=== PATIENT | male | born 1985 | race Caucasian/White ===

== ENCOUNTER 2023-10-14 11:31 | Outpatient (OUT) | payer OTHER, SELFPAY ==
[2023-10-14 11:51] LABS: Basophils Absolute Auto 0.1 10^3/uL (0.0-0.1); Basophils Percent Auto 0.7 % (0.2-2.0); Eosinophils Absolute Auto 0.3 10^3/uL (0.0-0.7); Eosinophils Percent Auto 3.1 % (0.9-7.0); Hematocrit 40.5 % (42.0-54.0); Hemoglobin 13.6 g/dL (14.0-18.0); Immature Granulocytes Abs Auto 0.07 10^3/uL (0.00-0.03); Immature Granulocytes Pct Auto 0.7 % (0.0-0.5); Lymphocytes Absolute Auto 2.6 10^3/uL (1.2-3.8); Lymphocytes Percent Auto 26.3 % (20.5-60.0); Mean Corpuscular HGB Conc 33.6 g/dL (29.9-35.2); Mean Corpuscular Hemoglobin 29.4 pg (25.9-34.0); Mean Corpuscular Volume 87.5 fL (80.0-94.0); Mean Platelet Volume 9.3 fL (9.5-13.5); Monocytes Absolute Auto 0.8 10^3/uL (0.3-0.8); Monocytes Percent Auto 7.6 % (1.7-12.0); Neutrophils Absolute Auto 6.1 10^3/uL (1.4-6.5); Neutrophils Percent Auto 61.6 % (43.0-75.0); Platelet Count 248 10^3/uL (150-450); Red Blood Count 4.63 10^6/uL (4.70-6.10); Red Cell Distribution Width 14.2 % (11.0-15.0)
[2023-10-14 11:55] LABS: Estimated Average Glucose 105 mg/dL; Glycohemoglobin A1C 5.3 % (4.5-6.2)
[2023-10-14 12:34] LABS: Alanine Aminotransferase 57 U/L (16-63); Albumin Globulin Ratio 0.9; Albumin Level 3.5 g/dL (3.4-5.0); Alkaline Phosphatase 59 U/L (46-116); Anion Gap 11.5; Aspartate Amino Transferase 18 U/L (15-37); BUN Creatinine Ratio 15.4; Bilirubin Direct 0.1 mg/dL (0.0-0.2); Bilirubin Total 0.7 mg/dL (0.2-1.0); Carbon Dioxide 29.7 mmol/L (21.0-32.0); Chloride 104 mmol/L (98-107); Cholesterol 166 mg/dL (<=200); Estimated GFR (African America >60 (>=60); Estimated GFR (Non-African Ame >60 (>=60); Glucose 90 mg/dL (74-106); HDL Cholesterol 42 mg/dL (40-60); LDL Cholesterol Calculated 110.8 mg/dL; Potassium 4.2 mmol/L (3.5-5.1); Sodium 141 mmol/L (136-145); Total Protein 7.5 g/dL (6.4-8.2); Triglycerides 66 mg/dL (<=150); VLDL CHOLESTEROL 13.2 mg/dL
== END 2023-10-14 11:32 | disposition home or self-care (01) ==
LOC: LAB 11:31
PROVIDERS: PCP Family Medicine; Visit Provider Family Medicine
DX: Z00.00 Encounter for general adult medical examination without abnormal findings (principal); E55.9 Vitamin D deficiency, unspecified
CPT/HCPCS: 36415; 80048; 80061; 80076; 82306; 83036; 84443; 85025

== ENCOUNTER 2024-10-16 10:23 | Outpatient (OUT) | payer OTHER, SELFPAY ==
[2024-10-16 10:39] LABS: Basophils Absolute Auto 0.1 10^3/uL (0.0-0.1); Basophils Percent Auto 0.6 % (0.2-2.0); Eosinophils Absolute Auto 0.3 10^3/uL (0.0-0.7); Eosinophils Percent Auto 2.7 % (0.9-7.0); Hematocrit 41.8 % (42.0-54.0); Hemoglobin 14.3 g/dL (14.0-18.0); Immature Granulocytes Abs Auto 0.07 10^3/uL (0.00-0.03); Immature Granulocytes Pct Auto 0.7 % (0.0-0.5); Lymphocytes Absolute Auto 2.7 10^3/uL (1.2-3.8); Lymphocytes Percent Auto 25.3 % (20.5-60.0); Mean Corpuscular HGB Conc 34.2 g/dL (29.9-35.2); Mean Corpuscular Hemoglobin 29.6 pg (25.9-34.0); Mean Corpuscular Volume 86.5 fL (80.0-94.0); Monocytes Absolute Auto 0.8 10^3/uL (0.3-0.8); Monocytes Percent Auto 7.4 % (1.7-12.0); Neutrophils Absolute Auto 6.7 10^3/uL (1.4-6.5); Neutrophils Percent Auto 63.3 % (43.0-75.0); Platelet Count 249 10^3/uL (150-450); Red Blood Count 4.83 10^6/uL (4.70-6.10); Red Cell Distribution Width 14.2 % (11.0-15.0); White Blood Count 10.6 10^3/uL (4.0-11.0)
--- OUTSIDE RECORDS SUMMARY | 2024-10-16 10:45 | XMS_ITS | CCD ---
Author Organization [facility] Care Team Providers Care Certified Energy Manager Name Role Phone Rola Caba Unavailable CATALINA, DR ARMEN García Attending Unavailable NADERER, DR ARMEN García Admitting Unavailable NADERER, DR ARMEN García Primary Care Unavailable NADERER, DR ARMEN García Consulting Unavailable NADERER, DR ARMEN García Admitting Unavailable NADERER, DR ARMEN García Primary Care Unavailable NADERER, DR ARMEN García Consulting Unavailable NADERER, DR ARMEN García Attending Unavailable NADERER, DR ARMEN García Admitting Unavailable NADERER, DR ARMEN García Primary Care Unavailable NADERER, DR ARMEN García Consulting Unavailable NADERER, DR ARMEN García Attending Unavailable NADERER, DR ARMEN García Admitting Unavailable NADERER, DR ARMEN García Primary Care Unavailable NADERER, DR ARMEN García Consulting Unavailable NADERER, DR ARMEN García Attending Unavailable Unavailable Primary Care Provider Armen Jose MD Primary Care Provider CATALINA, ARMEN Attending Unavailable HARMEET HUGO Attending Unavailable NADERER, ARMEN Attending Unavailable Allergies Allergy Classification Reported Allergen(s) Allergy Type Date of Onset Reaction(s) Facility (1 source) Penicillin G Drug Allergy Unknown [facility] Other (1 source) Sulfamethoxazole / Trimethoprim Drug Allergy Unknown [facility] Other (3 sources) Penicillins Drug Allergy 4 Rash [facility] (3 sources) Sulfamethoxazole / Trimethoprim Drug Allergy 4 Unknown [facility] Medications Current Medications Medication Drug Class(es) Dates Sig (Normalized) Sig (Original) Bacitracin 500 UNIT/GM (1 source) Bacitracin 500 UNIT/GM 1 application right lower eye lid 3 times a day for 7 days Active cholecalciferol 0.05 mg oral tablet (1 source) Vitamin D Start: 10-14-2023 take 1 tablet by mouth once in the morning cholecalciferol (Vitamin D-3) 50 MCG (1999 UT) tablet Indications: Vitamin D deficiency Take 1 tablet (50 mcg) by mouth in the morning. 90 tablet 3 10/14/2023 Active hydroCHLOROthiazide 25 mg / losartan potassium 100 mg oral tablet (3 sources) Thiazide Diuretic, Angiotensin 2 Receptor Ej Start: 02-10-2024 take 1 tablet by mouth once daily losartan-hydroCHLOR Othiazide (Hyzaar) 100-25 MG tablet Indications: Essential hypertension, benign (CMS/HCC) Take 1 tablet by mouth Daily 90 tablet 3 02/10/2024 Active Losartan Potassium-HCTZ (1 source) Losartan Potassium-HCTZ Active Nirmatrelvir&Ritonavir 300/100 (Paxlovid, 300/100,) 20 x 150 MG & 10 x 100MG tablet therapy pack (1 source) Start: 11-23-2023 Nirmatrelvir&Ritona vir 300/100 (Paxlovid, 300/100,) 20 x 150 MG & 10 x 100MG tablet therapy pack Indications: COVID Take 1 Dose by mouth See administration instructions 1 each 0 11/23/2023 Active Completed/Discontinued Medications Medication Drug Class(es) Dates Sig (Normalized) Sig (Original) Paxlovid, 300/100, 20 x 150 MG & 10 x 100MG tablet therapy pack (1 source) Start: 02-28-2023 End: 11-23-2023 Paxlovid, 300/100, 20 x 150 MG & 10 x 100MG tablet therapy pack Take 1 Dose by mouth See administration instructions 0 02/28/2023 11/23/2023 Discontinued (Reorder) Problems Active Problems Problem Classification Problem Date Documented Da te Episodic/Chronic Acute bronchitis (1 source) Acute bronchitis; Translations: [Acute bronchitis] Episodic Essential hypertension (5 sources) Benign essential hypertension; Translations: [Essential (primary) hypertension] Onset: 12-20-2023 12-20-2023 Chronic Nutritional deficiencies (4 sources) Vitamin D deficiency, unspecified; Translations: [Vitamin D deficiency] Onset: 08-15-2022 12-20-2023 Chronic Other nutritional; endocrine; and metabolic disorders (1 source) Morbid obesity; Translations: [Morbid (severe) obesity due to excess calories] Onset: 02-10-2024 02-10-2024 Chronic Other nutritional; endocrine; and metabolic disorders (4 sources) Severe obesity; Translations: [Class 3 severe obesity due to excess calories with serious comorbidity and body mass index (BMI) of 45.0 to 49.9 in adult (CMS/[facility])] Onset: 02-10-2024 09-12-2024 Chronic Unclassified (3 sources) CONTACT W/AND (SUSP) EXPOS COVID-19; Translations: [CONTACT W/AND (SUSP) EXPOS COVID-19] Onset: 11-12-2021 Viral infection (1 source) Disease caused by 2019-nCoV; Translations: [COVID-19] 11-23-2023 Episodic Viral infection (1 source) COVID-19; Translations: [COVID-19] Onset: 11-25-2021 Past or Other Problems Problem Classification Problem Date Documented Da te Episodic/Chronic Diabetes mellitus without complication (3 sources) Prediabetes; Translations: [Prediabetes] Onset: 12-20-2023 12-20-2023 Episodic Inflammation; infection of eye (except that caused by tuberculosis or sexually transmitteddisease) (1 source) Hordeolum externum right upper eyelid Onset: 03-28-2022 Resolved: 03-28-2022 Episodic Other non-traumatic joint disorders (3 sources) Pain in left knee; Translations: [Pain in joint, lower leg] Onset: 12-20-2023 12-20-2023 Episodic Other upper respiratory disease (3 sources) Bleeding from nose; Translations: [Epistaxis] Onset: 02-10-2024 Resolved: 09-12-2024 02-10-2024 Episodic Unclassified (1 source) CONTACT W/AND (SUSP) EXPOS COVID-19; Translations: [CONTACT W/AND (SUSP) EXPOS COVID-19] Onset: 11-23-2021 Results Test Name Value Interpretation Reference Range Facility CBC AUTO DIFFon 08-09-2022 BASO # 0.1 103/ul Normal 0.0-0.1 [facility] Comment on above: Performed By: #### C BC #### [facility] [address] [place] [address] Dr. Kavitha Yoo Basophils/100 WBC (Bld) 0.8 % Normal 0.2-2.0 [facility] Comment on above: Performed By: #### C BC #### [facility] [address] [place] [address] Dr. Kavitha Yoo EO # 0.2 103/ul Normal 0.0-0.7 [facility] Comment on above: Performed By: #### C BC #### [facility] [address] [place] [address] Dr. Kavitha Yoo Eosinophils/100 WBC (Bld) 1.8 % Normal 0.9-7.0 [facility] Comment on above: Performed By: #### C BC #### [facility] [address] [place] [address] Dr. Kavitha Yoo Erythrocyte distribution width (RBC) [Ratio] 14.2 % Normal 11.0-15.0 [facility] Comment on above: Performed By: #### C BC #### [facility] [address] [place] [address] Dr. Kavitha Yoo Hematocrit (Bld) [Volume fraction] 42.6 % Normal 42.0-54.0 [facility] Comment on above: Performed By: #### C BC #### [facility] [address] [place] [address] Dr. Kavitha Yoo Hemoglobin (Bld) [Mass/Vol] 14.0 g/dL Normal 14.0-18.0 [facility] Comment on above: Performed By: #### C BC #### [facility] [address] [place] [address] Dr. Kavitha Yoo IG # 0.06 10e3/ul Critically high 0.00-0.03 [facility] Comment on above: Performed By: #### C BC #### [facility] [address] [place] [address] Dr. Kavitha Yoo IG % 0.6 % Critically high 0.0-0.5 [facility] Comment on above: Performed By: #### C BC #### [facility] [address] [place] [address] Dr. Kavitha Yoo LYMPH # 2.7 103/ul Normal 1.2-3.8 [facility] Comment on above: Performed By: #### C BC #### [facility] [address] [place] [address] Dr. Kavitha Yoo Lymphocytes/100 WBC (Bld) 26.6 % Normal 20.5-60.0 [facility] Comment on above: Performed By: #### C BC #### [facility] [address] [place] [address] Dr. Kavitha Yoo MANUAL DIFF REQ NO Normal [facility] Comment on above: Performed By: #### C BC #### [facility] [address] [place] [address] Dr. Kavitha Yoo MCH (RBC) [Entitic mass] 28.9 pg Normal 25.9-34.0 [facility] Comment on above: Performed By: #### C BC #### [facility] [address] [place] [address] Dr. Kavitha Yoo MCHC (RBC) [Mass/Vol] 32.9 g/dL Normal 29.9-35.2 [facility] Comment on above: Performed By: #### C BC #### [facility] [address] [place] [address] Dr. Kavitha Yoo MCV (RBC) [Entitic vol] 88.0 fL Normal 80.0-94.0 [facility] Comment on above: Performed By: #### C BC #### [facility] [address] [place] [address] Dr. Kavitha Yoo MONO # 0.8 103/ul Normal 0.3-0.8 [facility] Comment on above: Performed By: #### C BC #### [facility] [address] [place] [address] Dr. Kavitha Yoo Monocytes/100 WBC (Bld) 7.7 % Normal 1.7-12.0 [facility] Comment on above: Performed By: #### C BC #### [facility] [address] [place] [address] Dr. Kavitha Yoo NEUT # 6.3 103/ul Normal 1.4-6.5 [facility] Comment on above: Performed By: #### C BC #### [facility] [address] [place] [address] Dr. Kavitha Yoo Neutrophils/100 WBC (Bld) 62.5 % Normal 43.0-75.0 [facility] Comment on above: Performed By: #### C BC #### [facility] [address] [place] [address] Dr. Kavitha Yoo Platelet mean volume (Bld) [Entitic vol] 9.6 fL Normal 9.5-13.5 [facility] Comment on above: Performed By: #### C BC #### [facility] [address] [place] [address] Dr. Kavitha Yoo PLT 286 103/ul Normal 150-450 [facility] Comment on above: Performed By: #### C BC #### [facility] [address] [place] [address] Dr. Kavitha Yoo RBC 4.84 106/ul Normal 4.70-6.10 [facility] Comment on above: Performed By: #### C BC #### [facility] [address] [place] [address] Dr. Kavitha Yoo WBC 10.0 103/ul Normal 4.0-11.0 [facility] Comment on above: Performed By: #### C BC #### [facility] [address] [place] [address] Dr. Kavitha Yoo GLYCOHEMOGLOBIN A1Con 2021 ADA RECOMMENDATION SEE BELOW Normal [facility] Comment on above: Result Comment: ADA RECOMMENDED LIMIT 4.0 - 6.0 ADA THERAPEUTIC TARGET < 7.0 ACTION SUGGESTED > 7.0 Performed By: #### A 1C #### [facility] [address] [place] [address] Dr. Kavitha Yoo Glucose [Mass/Vol] 94 mg/dL Normal [facility] Comment on above: Performed By: #### A 1C #### [facility] [address] [place] [address] Dr. Kavitha Yoo HbA1c (Bld) [Mass fraction] 4.9 % Normal 4.5-6.2 [facility] Comment on above: Performed By: #### A 1C #### [facility] [address] [address] [address] Kavitha Yoo LIPID PROFILEon 08-09-2022 CHOL-HDL RATIO NORM SEE BELOW Normal [facility] Comment on above: Result Comment: 3.3 - 4.4 LOW RISK 4.4 - 7.1 AVERAGE RISK 7.1 - 11.0 MODERATE RISK >11.0 HIGH RISK Performed By: #### T SH, LIVER, BMP, LIPID #### [facility] [address] [address] [address] Kavitha Yoo Cholesterol [Mass/Vol] 169 mg/dL Normal <=200 [facility] Comment on above: Performed By: #### T SH, LIVER, BMP, LIPID #### [facility] [address] [place] [address] Dr. Kavitha Yoo Cholesterol in HDL [Mass/Vol] 40 mg/dL Normal 40-60 [facility] Comment on above: Performed By: #### T SH, LIVER, BMP, LIPID #### [facility] [address] [address] [address] Kavitha Yoo Cholesterol in LDL [Mass/Vol] 120.0 mg/dL Normal [facility] Comment on above: Performed By: #### T SH, LIVER, BMP, LIPID #### [facility] [address] [address] [address] Kavitha Yoo Cholesterol.total/Ch olesterol in HDL [Mass ratio] 4.2 {ratio} Normal [facility] Comment on above: Performed By: #### T SH, LIVER, BMP, LIPID #### [facility] [address] [address] [address] Kavitha Yoo HDL NORMAL > or = 60 mg/dl - LOW CARDIOVASCULAR RISK <40 mg/dl - HIGH CARDIOVASCULAR RISK Normal [facility] Comment on above: Performed By: #### T SH, LIVER, BMP, LIPID #### [facility] [address] [place] [address] Dr. Kavitha Yoo LDL CALC NORMAL SEE BELOW Normal [facility] Comment on above: Result Comment: <100 mg/dl OPTIMAL 100 - 129 mg/dl NEAR OR ABOVE OPTIMAL 130 - 159 mg/dl BORDERLINE HIGH 160 - 189 mg/dl HIGH >190 mg/dl VERY HIGH Performed By: #### T SH, LIVER, BMP, LIPID #### [facility] [address] [address] [address] Kavitha Yoo Triglyceride [Mass/Vol] 45 mg/dL Normal <=150 [facility] Comment on above: Performed By: #### T SH, LIVER, BMP, LIPID #### [facility] [address] [address] [address] Kavitha Yoo VLDL CALC 9.0 mg/dL Normal [facility] Comment on above: Performed By: #### T SH, LIVER, BMP, LIPID #### [facility] [address] [address] [address] Kavitha Yoo LIVER PROFILEon 08-09-2022 Albumin [Mass/Vol] 4.1 g/dL Normal 3.4-5.0 [facility] Comment on above: Performed By: #### T SH, LIVER, BMP, LIPID #### [facility] [address] [address] [address] Kavitha Yoo Albumin/Globulin [Mass ratio] 1.0 {ratio} Normal [facility] Comment on above: Performed By: #### T SH, LIVER, BMP, LIPID #### [facility] [address] [address] [address] Kavitha Yoo ALP [Catalytic activity/Vol] 57 U/L Normal 46-116 [facility] Comment on above: Performed By: #### T SH, LIVER, BMP, LIPID #### [facility] [address] [address] [address] Kavitha Yoo ALT [Catalytic activity/Vol] 53 U/L Normal 16-63 [facility] Comment on above: Performed By: #### T SH, LIVER, BMP, LIPID #### [facility] [address] [address] [address] Kavitha Yoo AST [Catalytic activity/Vol] 22 U/L Normal 15-37 [facility] Comment on above: Performed By: #### T SH, LIVER, BMP, LIPID #### [facility] [address] [address] [address] Kavitha Yoo BILI, CONJUGATED 0.2 mg/dL Normal 0.0-0.2 [facility] Comment on above: Performed By: #### T SH, LIVER, BMP, LIPID #### [facility] [address] [place] [address] Dr. Kavitha Yoo Bilirubin [Mass/Vol] 0.8 mg/dL Normal 0.2-1.0 [facility] Comment on above: Performed By: #### T SH, LIVER, BMP, LIPID #### [facility] [address] [place] [address] Dr. Kavitha Yoo Globulin (S) [Mass/Vol] 4.0 g/dL Normal [facility] Comment on above: Performed By: #### T SH, LIVER, BMP, LIPID #### [facility] [address] [place] [address] Dr. Kavitha Yoo Protein [Mass/Vol] 8.1 g/dL Normal 6.4-8.2 [facility] Comment on above: Performed By: #### T SH, LIVER, BMP, LIPID #### [facility] [address] [place] [address] Dr. Kavitha Yoo PROF CHEM 8 (BAS METB)on Anion gap [Moles/Vol] 9.2 mmol/L Normal [facility] Comment on above: Performed By: #### T SH, LIVER, BMP, LIPID #### [facility] [address] [place] [address] Dr. Kavitha Yoo Calcium [Mass/Vol] 9.2 mg/dL Normal 8.5-10.1 [facility] Comment on above: Performed By: #### T SH, LIVER, BMP, LIPID #### [facility] [address] [place] [address] Dr. Kavitha Yoo Chloride [Moles/Vol] 101 mmol/L Normal 98-107 [facility] Comment on above: Performed By: #### T SH, LIVER, BMP, LIPID #### [facility] [address] [address] [address] Kavitha Yoo CO2 [Moles/Vol] 30.6 mmol/L Normal 21.0-32.0 [facility] Comment on above: Performed By: #### T SH, LIVER, BMP, LIPID #### [facility] [address] [address] [address] Kavitha Yoo Creatinine [Mass/Vol] 0.74 mg/dL Normal 0.70-1.30 [facility] Comment on above: Performed By: #### T SH, LIVER, BMP, LIPID #### [facility] [address] [address] [address] Kavitha Yoo EGFR-AF TONGAN >60 Normal >=60 [facility] Comment on above: Performed By: #### T SH, LIVER, BMP, LIPID #### [facility] [address] [address] [address] Kavitha Yoo EGFR-NON AF TONGAN >60 Normal >=60 [facility] Comment on above: Performed By: #### T SH, LIVER, BMP, LIPID #### [facility] [address] [address] [address] Kavitha Yoo Glucose [Mass/Vol] 80 mg/dL Normal 74-106 [facility] Comment on above: Performed By: #### T SH, LIVER, BMP, LIPID #### [facility] [address] [address] [address] Kavitha Yoo Potassium [Moles/Vol] 3.8 mmol/L Normal 3.5-5.1 [facility] Comment on above: Performed By: #### T SH, LIVER, BMP, LIPID #### [facility] [address] [address] [address] Kavitha Yoo Sodium [Moles/Vol] 137 mmol/L Normal 136-145 [facility] Comment on above: Performed By: #### T SH, LIVER, BMP, LIPID #### [facility] [address] [address] [address] Kavitha Yoo Urea nitrogen [Mass/Vol] 13.0 mg/dL Normal 7.0-18.0 [facility] Comment on above: Performed By: #### T SH, LIVER, BMP, LIPID #### [facility] [address] [place] [address] Dr. Kavitha Yoo Urea nitrogen/Creatinine [Mass ratio] 17.6 mg/mg Normal [facility] Comment on above: Performed By: #### T SH, LIVER, BMP, LIPID #### [facility] [address] [place] [address] Dr. Kavitha Yoo TSHon 08-09-2022 TSH 2.402 uIU/mL Normal 0.358-3.740 [facility] Comment on above: Performed By: #### T SH, LIVER, BMP, LIPID #### [facility] [address] [place] [address] Dr. Kavitha Yoo VITAMIN D 25 OHon 08-09-2022 VIT D 25-OH 19.9 ng/mL Normal [facility] Comment on above: Performed By: #### V ITAD #### [facility] [address] [place] [address] Dr. Kavitha Yoo VIT D RANGES SEE BELOW Normal [facility] Comment on above: Result Comment: <20 ng/mL Vit D deficient 20 - <30 ng/mL Vit D insufficient 30 - 100 ng/mL Vit D sufficient >100 ng/mL Potential Toxicity Performed By: #### V ITAD #### [facility] [address] [place] [address] Dr. Kavitha Yoo Covid-19 PCR (CVDTB)on SARS-CoV-2 (COVID-19) RNA LYNDSEY+probe Ql (Unsp spec) Detected Critically abnormal NOT DETECTED [facility] Comment on above: Result Comment: This test is not yet approved or cleared by the [place] FDA. When there are no FDA-approved or cleared tests available, and other criteria are met, FDA can make tests available under an emergency access mechanism called an Emergency Use Authorization (EUA). The EUA for this test is supported by the [place] of Health and Human Service's (HHS's) declaration that circumstances exist to justify the emergency use of in vitro diagnostics for the detection and/or diagnosis of the virus that causes COVID-19. This EUA will remain in effect (meaning this test can be used) for the duration of the COVID-19 declaration justifying emergency of IVDs, unless it is terminated or revoked by FDA (after which the test may no longer be used). Performed By: #### C VDTBH #### [facility] [address] [place] [address] Dr. Kavitha Yoo Covid-19 PCR ([facility])on 10-18 SARS-CoV-2 (COVID-19) RNA LYNDSEY+probe Ql (Unsp spec) Not detected Normal NOT DETECTED [facility] Comment on above: Result Comment: This test is not yet approved or cleared by the [place] FDA. When there are no FDA-approved or cleared tests available, and other criteria are met, FDA can make tests available under an emergency access mechanism called an Emergency Use Authorization (EUA). The EUA for this test is supported by the [place] of Health and Human Service's (HHS's) declaration that circumstances exist to justify the emergency use of in vitro diagnostics for the detection and/or diagnosis of the virus that causes COVID-19. This EUA will remain in effect (meaning this test can be used) for the duration of the COVID-19 declaration justifying emergency of IVDs, unless it is terminated or revoked by FDA (after which the test may no longer be used). When diagnostic testing is negative, the possibility of a false negative should be considered in the context of a patient's recent exposures and the presence of clinical signs and symptoms consistent with SARS-CoV-2. Performed By: #### T SH, LIVER, BMP, LIPID #### [facility] [address] [place] [address] [id number] [address] Kavitha Yoo CBC AUTO DIFFon 09-01-2021 BASO # 0.1 103/ul Normal 0.0-0.1 [facility] Comment on above: Performed By: #### C BC #### [facility] [address] [place], [place] [address] Dr. Kavitha Yoo Basophils/100 WBC (Bld) 0.9 % Normal 0.2-2.0 [facility] Comment on above: Performed By: #### C BC #### [facility] [address] [address] [address] Kavitha Yoo EO # 0.4 103/ul Normal 0.0-0.7 [facility] Comment on above: Performed By: #### C BC #### [facility] [address] [address] [address] Kavitha Yoo Eosinophils/100 WBC (Bld) 3.3 % Normal 0.9-7.0 [facility] Comment on above: Performed By: #### C BC #### [facility] [address] [place] [address] Dr. Kavitha Yoo Erythrocyte distribution width (RBC) [Ratio] 14.0 % Normal 11.0-15.0 [facility] Comment on above: Performed By: #### C BC #### [facility] [address] [place] [address] Dr. Kavitha Yoo Hematocrit (Bld) [Volume fraction] 41.9 % Critically low 42.0-54.0 [facility] Comment on above: Performed By: #### C BC #### [facility] [address] [place] [address] Dr. Kavitha Yoo Hemoglobin (Bld) [Mass/Vol] 14.1 g/dL Normal 14.0-18.0 [facility] Comment on above: Performed By: #### C BC #### [facility] [address] [place] [address] Dr. Kavitha Yoo IG # 0.08 10e3/ul Critically high 0.00-0.03 [facility] Comment on above: Performed By: #### C BC #### [facility] [address] [place] [address] Dr. Kavitha Yoo IG % 0.7 % Critically high 0.0-0.5 [facility] Comment on above: Performed By: #### C BC #### [facility] [address] [place] [address] Dr. Kavitha Yoo LYMPH # 3.2 103/ul Normal 1.2-3.8 [facility] Comment on above: Performed By: #### C BC #### [facility] [address] [place] [address] Dr. Kavitha Yoo Lymphocytes/100 WBC (Bld) 29.0 % Normal 20.5-60.0 [facility] Comment on above: Performed By: #### C BC #### [facility] [address] [place] [address] Dr. Kavitha Yoo MANUAL DIFF REQ NO Normal [facility] Comment on above: Performed By: #### C BC #### [facility] [address] [place] [address] Dr. Kavitha Yoo MCH (RBC) [Entitic mass] 29.6 pg Normal 25.9-34.0 [facility] Comment on above: Performed By: #### C BC #### [facility] [address] [place] [address] Dr. Kavitha Yoo MCHC (RBC) [Mass/Vol] 33.7 g/dL Normal 29.9-35.2 [facility] Comment on above: Performed By: #### C BC #### [facility] [address] [place] [address] Dr. Kavitha Yoo MCV (RBC) [Entitic vol] 87.8 fL Normal 80.0-94.0 [facility] Comment on above: Performed By: #### C BC #### [facility] [address] [place] [address] Dr. Kavitha Yoo MONO # 0.9 103/ul Critically high 0.3-0.8 [facility] Comment on above: Performed By: #### C BC #### [facility] [address] [place] [address] Dr. Kavitha Yoo Monocytes/100 WBC (Bld) 8.1 % Normal 1.7-12.0 [facility] [facility] Comment on above: Performed By: #### C BC #### [facility] [address] [place] [address] Dr. Kavitha Yoo NEUT # 6.3 103/ul Normal 1.4-6.5 [facility] Comment on above: Performed By: #### C BC #### [facility] [address] [address] [address] Kavitha Yoo Neutrophils/100 WBC (Bld) 58.0 % Normal 43.0-75.0 [facility] Comment on above: Performed By: #### C BC #### [facility] [address] [address] [address] Kavitha Yoo Platelet mean volume (Bld) [Entitic vol] 9.5 fL Normal 9.5-13.5 [facility] Comment on above: Performed By: #### C BC #### [facility] [address] [address] [address] Kavitha Yoo PLT 276 103/ul Normal 150-450 [facility] Comment on above: Performed By: #### C BC #### [facility] [address] [place] [address] Dr. Kavitha Yoo RBC 4.77 106/ul Normal 4.70-6.10 [facility] Comment on above: Performed By: #### C BC #### [facility] [address] [place] [address] Dr. Kavitha Yoo WBC 10.9 103/ul Normal 4.0-11.0 [facility] Comment on above: Performed By: #### C BC #### [facility] [address] [place] [address] Dr. Kavitha Yoo GLYCOHEMOGLOBIN A1Con 2020 ADA RECOMMENDATION ADA THERAPEUTIC TARGET 6.0 - 7.0 ACTION SUGGESTED > 7.0 Normal [facility] Comment on above: Performed By: #### A 1C #### [facility] [address] [place] [address] Dr. Kavitha Yoo Glucose [Mass/Vol] 105 mg/dL Normal [facility] Comment on above: Performed By: #### A 1C #### [facility] [address] [place] [address] Dr. Kavitha Yoo HbA1c (Bld) [Mass fraction] 5.3 % Normal <=6.0 [facility] Comment on above: Performed By: #### A 1C #### [facility] [address] [address] [address] Kavitha Yoo LIPID PROFILEon 09-01-2021 CHOL-HDL RATIO NORM SEE BELOW Normal [facility] Comment on above: Result Comment: 3.3 - 4.4 LOW RISK 4.4 - 7.1 AVERAGE RISK 7.1 - 11.0 MODERATE RISK >11.0 HIGH RISK Performed By: #### T SH, LIVER, BMP, LIPID #### [facility] [address] [address] [address] Kavitha Yoo Cholesterol [Mass/Vol] 178 mg/dL Normal <=200 [facility] Comment on above: Performed By: #### T SH, LIVER, BMP, LIPID #### [facility] [address] [place] [address] Dr. Kavitha Yoo Cholesterol in HDL [Mass/Vol] 38 mg/dL Normal [facility] Comment on above: Performed By: #### T SH, LIVER, BMP, LIPID #### [facility] [address] [place] [address] Dr. Kavitha Yoo Cholesterol in LDL [Mass/Vol] 123.4 mg/dL Normal [facility] Comment on above: Performed By: #### T SH, LIVER, BMP, LIPID #### [facility] [address] [place] [address] Dr. Kavitha Yoo Cholesterol.total/Ch olesterol in HDL [Mass ratio] 4.7 {ratio} Normal [facility] Comment on above: Performed By: #### T SH, LIVER, BMP, LIPID #### [facility] [address] [place] [address] Dr. Kavitha Yoo HDL NORMAL > or = 60 mg/dl - LOW CARDIOVASCULAR RISK <40 mg/dl - HIGH CARDIOVASCULAR RISK Normal [facility] Comment on above: Performed By: #### T SH, LIVER, BMP, LIPID #### [facility] [address] [place] [address] Dr. Kavitha Yoo LDL CALC NORMAL SEE BELOW Normal [facility] Comment on above: Result Comment: <100 mg/dl OPTIMAL 100 - 129 mg/dl NEAR OR ABOVE OPTIMAL 130 - 159 mg/dl BORDERLINE HIGH 160 - 189 mg/dl HIGH >190 mg/dl VERY HIGH Performed By: #### T SH, LIVER, BMP, LIPID #### [facility] [address] [address] [address] Kavitha Yoo Triglyceride [Mass/Vol] 83 mg/dL Normal <=150 [facility] Comment on above: Performed By: #### T SH, LIVER, BMP, LIPID #### [facility] [address] [address] [address] Kavitha Yoo VLDL CALC 16.6 mg/dL Normal [facility] Comment on above: Performed By: #### T SH, LIVER, BMP, LIPID #### [facility] [address] [address] [address] Kavitha Yoo LIVER PROFILEon 09-01-2021 Albumin [Mass/Vol] 3.9 g/dL Normal 3.5-5.0 [facility] Comment on above: Performed By: #### T SH, LIVER, BMP, LIPID #### [facility] [address] [address] [address] Kavitha Yoo Albumin/Globulin [Mass ratio] 1.0 {ratio} Normal [facility] Comment on above: Performed By: #### T SH, LIVER, BMP, LIPID #### [facility] [address] [place] [address] Dr. Kavitha Yoo ALP [Catalytic activity/Vol] 50 U/L Normal 38-126 [facility] Comment on above: Performed By: #### T SH, LIVER, BMP, LIPID #### [facility] [address] [address] [address] Kavitha Yoo ALT [Catalytic activity/Vol] 48 U/L Normal 21-72 [facility] Comment on above: Performed By: #### T SH, LIVER, BMP, LIPID #### [facility] [address] [place] [address] Dr. Kavitha Yoo AST [Catalytic activity/Vol] 18 U/L Normal 17-59 [facility] Comment on above: Performed By: #### T SH, LIVER, BMP, LIPID #### [facility] [address] [place] [address] Dr. Kavitha Yoo BILI, CONJUGATED 0.1 mg/dL Normal 0.0-0.[address] [facility] Comment on above: Performed By: #### T SH, LIVER, BMP, LIPID #### [facility] [address] [address] [address] Kavitha Yoo Bilirubin [Mass/Vol] 0.7 mg/dL Normal 0.2-1.3 [facility] Comment on above: Performed By: #### T SH, LIVER, BMP, LIPID #### [facility] [address] [address] [address] Kavitha Yoo Globulin (S) [Mass/Vol] 3.9 g/dL Normal [facility] Comment on above: Performed By: #### T SH, LIVER, BMP, LIPID #### [facility] [address] [place] [address] Dr. Kavitha Yoo Protein [Mass/Vol] 7.8 g/dL Normal 6.1-8.2 [facility] Comment on above: Performed By: #### T SH, LIVER, BMP, LIPID #### [facility] [address] [place] [address] Dr. Kavitha Yoo PROF CHEM 8 (BAS METB)on Anion gap [Moles/Vol] 10.3 mmol/L Normal [facility] Comment on above: Performed By: #### T SH, LIVER, BMP, LIPID #### [facility] [address] [address] [address] Kavitha Yoo Calcium [Mass/Vol] 9.3 mg/dL Normal 8.4-10.2 [facility] Comment on above: Performed By: #### T SH, LIVER, BMP, LIPID #### [facility] [address] [address] [address] Kavitha Yoo Chloride [Moles/Vol] 96 mmol/L Critically low 98-107 [facility] Comment on above: Performed By: #### T SH, LIVER, BMP, LIPID #### [facility] [address] [address] [address] Kavitha Yoo CO2 [Moles/Vol] 32.4 mmol/L Critically high 22.0-30.0 [facility] Comment on above: Performed By: #### T SH, LIVER, BMP, LIPID #### [facility] [address] [address] [address] Kavitha Yoo Creatinine [Mass/Vol] 0.69 mg/dL Normal 0.66-1.25 [facility] Comment on above: Performed By: #### T SH, LIVER, BMP, LIPID #### [facility] [address] [address] [address] Kavitha Yoo EGFR-AF TONGAN >60 Normal >=60 [facility] Comment on above: Performed By: #### T SH, LIVER, BMP, LIPID #### [facility] [address] [place] [address] Dr. Kavitha Yoo EGFR-NON AF TONGAN >60 Normal >=60 [facility] Comment on above: Performed By: #### T SH, LIVER, BMP, LIPID #### [facility] [address] [place] [address] Dr. Kavitha Yoo Glucose [Mass/Vol] 91 mg/dL Normal 74-106 [facility] Comment on above: Performed By: #### T SH, LIVER, BMP, LIPID #### [facility] [address] [place] [address] Dr. Kavitha Yoo Potassium [Moles/Vol] 3.7 mmol/L Normal 3.4-5.0 [facility] Comment on above: Performed By: #### T SH, LIVER, BMP, LIPID #### [facility] [address] [address] [address] Kavitha Yoo Sodium [Moles/Vol] 135 mmol/L Critically low 137-145 [facility] Comment on above: Performed By: #### T SH, LIVER, BMP, LIPID #### [facility] [address] [place] [address] Dr. Kavitha Yoo Urea nitrogen [Mass/Vol] 12.0 mg/dL Normal 9.0-20.0 [facility] Comment on above: Performed By: #### T SH, LIVER, BMP, LIPID #### [facility] [address] [place] [address] Dr. Kavitha Yoo Urea nitrogen/Creatinine [Mass ratio] 17.4 mg/mg Normal [facility] Comment on above: Performed By: #### T SH, LIVER, BMP, LIPID #### [facility] [address] [place] [address] Dr. Kavitha Yoo TSHon 09-01-2021 TSH 2.642 uIU/mL Normal 0.470-4.680 [facility] Comment on above: Performed By: #### T SH, LIVER, BMP, LIPID #### [facility] [address] [place] [address] Dr. Kavitha Yoo TSH RANGE SEE BELOW Normal [facility] Comment on above: Result Comment: <0.3 4 UIU/ml HYPERTHYROID 0.34-5.60 UIU/ml EUTHYROID >5.60 UIU/ml HYPOTHYROID Performed By: #### T SH, LIVER, BMP, LIPID #### [facility] [address] [place] [address] Dr. Kavitha Yoo VITAMIN D 25 OHon 09-01-2021 VIT D 25-OH 14.5 ng/mL Normal [facility] Comment on above: Performed By: #### T SH, LIVER, BMP, LIPID #### [facility] [address] [place] [address] Dr. Kavitha Yoo VIT D RANGES SEE BELOW Normal [facility] Comment on above: Result Comment: <20 ng/mL Vit D deficient 20 - <30 ng/mL Vit D insufficient 30 - 100 ng/mL Vit D sufficient >100 ng/mL Potential Toxicity Performed By: #### T SH, LIVER, BMP, LIPID #### [facility] [address] [place] [address] Dr. Kavitha Yoo Vital Signs Date Time Vital Sign Value Performing Clinician Facility 09-12-2024 08:55-0500 Body height 175.3 cm Armen Arnold MD Work Phone: [facility] 09-12-2024 08:55-0500 Body mass index (BMI) [Ratio] 48.29 kg/m2 Armen Arnold MD Work Phone: [facility] 09-12-2024 08:55-0500 Body temperature 97.11 [degF] Armen Arnold MD Work Phone: [facility] 09-12-2024 08:55-0500 Body weight 148.33 kg Armen Arnold MD Work Phone: [facility] 09-12-2024 08:55-0500 Diastolic blood pressure 74 mm[Hg] Armen Arnold MD Work Phone: [facility] 09-12-2024 08:55-0500 Heart rate 83 /min Armen Arnold MD Work Phone: [facility] 09-12-2024 08:55-0500 Respiratory rate 20 /min Armen Arnold MD Work Phone: [facility] 09-12-2024 08:55-0500 SaO2% (BldA) [Mass fraction] 97 % Armen Arnold MD Work Phone: [facility] 09-12-2024 08:55-0500 Systolic blood pressure 140 mm[Hg] Armen Arnold MD Work Phone: [facility] 03-28-2022 11:55-0400 Body height 182.88 cm Rola Caba Other [facility] Other 03-28-2022 11:55-0400 Body mass index (BMI) [Ratio] 43.37 kg/m2 Rola Caba Other [facility] Other 03-28-2022 11:55-0400 Body temperature 98.7 [degF] Rola Caba Other [facility] Other 03-28-2022 11:55-0400 Body weight 145.06 kg Rola Caba Other [facility] Other 03-28-2022 11:55-0400 Diastolic blood pressure 84 mm[Hg] Rola Bensonmond Other [facility] Other 03-28-2022 11:55-0400 Respiratory rate 18 /min Rola Bensonmond Other [facility] Other 03-28-2022 11:55-0400 SaO2% (BldA) [Mass fraction] 99 % Rola Bensonmond Other [facility] Other 03-28-2022 11:55-0400 Systolic blood pressure 136 mm[Hg] Rola Bensonmond Other [facility] Other Encounters Encounter Date Encounter Type Care Provider Facility Start: 09-12-2024 End: 09-12-2024 Bamboo flowsheet Armen Arnold MD Work Phone: [facility] Start: 09-12-2024 End: 09-12-2024 Bamboo flowsheet Armen Arnold MD Work Phone: [facility] Start: 09-12-2024 End: 09-12-2024 Patient encounter procedure Armen Arnold MD Work Phone: [facility] Work Phone: Start: 09-12-2024 End: 09-12-2024 Periodic preventive med est patient 18-39 yrs Armen Arnold MD Work Phone: [facility] Comment on above: Annual physical exam (Primary Dx); Essential hypertension, benign (CMS/HCC); Class 3 severe obesity due to excess calories with serious comorbidity and body mass index (BMI) of 45.0 to 49.9 in adult (CMS/HCC) Start: 09-12-2024 End: 09-12-2024 ambulatory ARMEN ARNOLD Not Available Start: 03-05-2024 End: 03-05-2024 ambulatory HARMEET HUGO Not Available Start: 02-10-2024 Patient encounter procedure Armen Arnold MD Work Phone: [facility] Start: 02-10-2024 End: 02-10-2024 ambulatory ARMEN ARNOLD Not Available Start: 11-23-2023 Orders Only Armen Coles Work Phone: [facility] Comment on above: COVID (Primary Dx) Start: 08-15-2022 Encounter for genera l adult medical examination without abnormal findings DR ARMEN ARNOLD [facility] Start: 08-09-2022 End: 08-10-[address] ARMEN ARNOLD Facility:[facility] Start: 08-09-2022 End: 08-10-2022 Encounter for general adult medical examination without abnormal findings DR ARMEN ARNOLD Facility:[facility] Start: 03-28-2022 End: 03-28-2022 ambulatory Rola Caba Other [facility] Other Start: 03-28-2022 Office outpatient ne w 20 minutes Rola Caba [facility] Start: 11-23-2021 End: 11-23-[address] ARMEN ARNOLD Facility:[facility] Start: 11-10-2021 End: 11-10-[address] ARMEN ARNOLD Facility:[facility] Start: 09-01-2021 End: 09-02-[address] ARMEN ARNLOD Facility:[facility] Plan of Treatment Date Care Activity Detail Author Start: 03-15-2025 End: 03-15-2025 Patient encounter procedure 03/15/2025 9:00 AM EDT Office Visit [facility] [address] [place] [id number] Armen Arnold MD [address] [place] [id number] [facility] Start: 09-12-2024 End: 09-12-2025 Basic metabolic 1998 panel - Serum or Plasma Basic metabolic panel Lab Routine Annual physical exam Expected: 09/12/2024 (Approximate), Expires: 09/12/2025 [facility] Comment on above: Expected: 09/12/2024 (Approximate), Expires: 09/12/2025 Start: 09-12-2024 End: 09-12-2025 CBC W Auto Differential panel - Blood CBC and differential Lab Routine Annual physical exam Expected: 09/12/2024 (Approximate), Expires: 09/12/2025 [facility] Comment on above: Expected: 09/12/2024 (Approximate), Expires: 09/12/2025 Start: 09-12-2024 End: 09-12-2025 Hemoglobin A1c/Hemoglobin.total in Blood Hemoglobin A1c Lab Routine Annual physical exam Expected: 09/12/2024 (Approximate), Expires: 09/12/2025 [facility] Work Phone: Comment on above: Expected: 09/12/2024 (Approximate), Expires: 09/12/2025 Start: 09-12-2024 End: 09-12-2025 Hepatic function 2000 panel - Serum or Plasma Hepatic function panel Lab Routine Annual physical exam Expected: 09/12/2024 (Approximate), Expires: 09/12/2025 [facility] Comment on above: Expected: 09/12/2024 (Approximate), Expires: 09/12/2025 Start: 09-12-2024 End: 09-12-2025 Lipid 1996 panel - Serum or Plasma Lipid panel Lab Routine Annual physical exam Expected: 09/12/2024 (Approximate), Expires: 09/12/2025 [facility] Comment on above: Expected: 09/12/2024 (Approximate), Expires: 09/12/2025 Start: 09-12-2024 End: 09-12-2025 Thyrotropin [Units/volume] in Serum or Plasma TSH Lab Routine Annual physical exam Expected: 09/12/2024 (Approximate), Expires: 09/12/2025 [facility] Comment on above: Expected: 09/12/2024 (Approximate), Expires: 09/12/2025 Start: 09-12-2024 End: 09-12-2024 Patient encounter procedure 09/12/2024 8:30 AM EST [facility] [address] [place] [address] Armen Arnold MD [address] [place] [address] Arrived [facility] Comment on above: Arrived Start: 06-17-2024 Influenza vaccination Influenza Vacc ine (#1) [facility] Immunizations Immunization Date Immunization Notes Care Provider Fa cility 07-25-2022 influenza virus vacc ine, unspecified formulation Armen Arnold MD Work Phone: [facility] Payers Date Payer Category Payer Private Health Insurance [employer] [id number] 2022 Unknown [employer] [id number] 2022-Present [address] [address] [place] [address] [id number] 2022 Unknown [id number] 1985 Unknown [id number] [id number] 1985 Unknown [id number] [id number] 1985 Unknown [id number] [id number] 1985 Unknown [id number] 1985 Unknown [id number] [id number] 1985 Unknown [id number] [id number] 1985 Unknown [id number] 1959 Unknown [id number] Social History Date Type Detail Facility Start: 12-20-2023 End: 09-12-2024 Sex Assigned At [facility] Tobacco smoking stat [facility] Tobacco smoking consumption unknown [facility] Start: 1985 Sex Assigned At Not on file [facility] Start: 03-05-2024 Tobacco smoking stat [facility] Never smoked tobacco [facility] Work Phone: Start: 03-05-2024 Tobacco use and exposure Smokeless tobacco non-user [facility] Start: 03-05-2024 End: 09-12-2024 Alcoholic beverage intake Lifetime non-drinker (finding) [facility] Start: 12-20-2023 End: 09-12-2024 History of Social function [facility] How often do you att end pentecostalism or adventism services? Patient declined [facility] Are you now , , , , never or living with a partner? [facility] How often to you hav e a drink containing alcohol? Never [facility] Do you feel stress - tense, restless, nervous, or anxious, or unable to sleep at night because your mind is troubled all the time - these days [OSQ] Not at all [facility] History of Present illness Narrative 09-12-2024 Armen Arnold MD - 09/12/2024 9:36 AM Brett Arnold MD - 09/12/2024 9:35 AM Brett Arnold MD - 09/12/2024 9:35 AM Brett Arnold MD - 09/12/2024 8:30 AM EST Note Date & Type Note Facility 09-12-2024 History of Presen t illness Narrative Associated Problem(s): Class 3 severe obesity due to excess calories with serious comorbidity and body mass index (BMI) of 45.0 to 49.9 in adult ([facility]) Discussed proper diet and regular aerobic exercise. Recommend Weight Watchers and need to limit calories and smaller portions. Need to increase activity and regular aerobic exercise several days a week for 30 minutes at a time. Associated Problem(s): Essential hypertension, benign ([facility]) BP controlled and monitor PRN. Associated Problem(s): Annual physical exam Due for labs. Discussed proper diet and regular aerobic exercise. Need aerobic exercise 5-6 days a week for 30 minutes at a time. Smaller portions and limit total calories. Colonoscopy after age 45. Tetanus every 10 years. Advised not to smoke. Subjective Patient ID: Francisco Caal is a 39 y.o. male who presents for Annual Exam ([facility]). Presents for annual PE. Weight unchanged over the past year. Active at work but no regular exercise or activity at home. Tries to watch diet and eat healthy. Increased fruits and vegetables. Smaller portions and limits snacking. Tries to limit total daily calories. Due for labs. Checking BP PRN and typically controlled. BP normal today. Taking medication daily and tolerating without side effects. Review of Systems Constitutional: Negative for fatigue. Respiratory: Negative for cough, shortness of breath and wheezing. Cardiovascular: Negative for chest pain and palpitations. Gastrointestinal: Negative for abdominal pain, diarrhea, nausea and vomiting. Genitourinary: Negative for dysuria. Objective Physical Exam Constitutional: General: He is not in acute distress. Appearance: Normal appearance. HENT: Head: Normocephalic. Right Ear: Tympanic membrane and ear canal normal. Left Ear: Tympanic membrane and ear canal normal. Eyes: Extraocular Movements: Extraocular movements intact. Pupils: Pupils are equal, round, and reactive to light. Cardiovascular: Rate and Rhythm: Normal rate and regular rhythm. Heart sounds: No murmur heard. No friction rub. No gallop. Pulmonary: Breath sounds: Normal breath sounds. No wheezing, rhonchi or rales. Abdominal: General: Bowel sounds are normal. There is no distension. Palpations: Abdomen is soft. Tenderness: There is no abdominal tenderness. There is no guarding or rebound. Musculoskeletal: General: Normal range of motion. Left lower leg: No edema. Neurological: General: No focal deficit present. Mental Status: He is alert. Cranial Nerves: No cranial nerve deficit. Deep Tendon Reflexes: Reflexes normal. Assessment/Plan Problem List Items Addressed This Visit Essential hypertension, benign (CMS/HCC) BP controlled and monitor PRN. Annual physical exam - Primary Due for labs. Discussed proper diet and regular aerobic exercise. Need aerobic exercise 5-6 days a week for 30 minutes at a time. Smaller portions and limit total calories. Colonoscopy after age 45. Tetanus every 10 years. Advised not to smoke. Relevant Orders Hemoglobin A1c Basic metabolic panel CBC and differential Hepatic function panel Lipid panel TSH Class 3 severe obesity due to excess calories with serious comorbidity and body mass index (BMI) of 45.0 to 49.9 in adult (CMS/HCC) Discussed proper diet and regular aerobic exercise. Recommend Weight Watchers and need to limit calories and smaller portions. Need to increase activity and regular aerobic exercise several days a week for 30 minutes at a time. documented in this encounter [facility] Evaluation note 03-28-2022 Note Date & Type Note Facility 03-28-2022 Evaluation note Encounter Date Diagnosis Assessment Notes Mar, Hordeolum externum of right upper eyelid (ICD-10 - H00.011) Use the antibiotic ointment as prescribed to your right eye. Apply warm compresses to your eye several times a day. Follow-up with your family physician if no improvement in 2 to 3 days. [facility] Other Evaluation note Note Date & Type Note Facility Evaluation note Diagnosis COVID- Primary documented in this encounter [facility] Evaluation note Note Date & Type Note Facility Evaluation note Diagnosis Essential hypertension, benign (CMS/HCC)- Primary Essential hypertension, benign Epistaxis Morbid obesity due to excess calories (CMS/HCC) Body mass index [BMI] 40.0-44.9, adult (Z68.41) Annual physical exam- Primary Routine general medical examination at a health care facility Essential hypertension, benign (CMS/HCC) Essential hypertension, benign Class 3 severe obesity due to excess calories with serious comorbidity and body mass index (BMI) of 45.0 to 49.9 in adult (CMS/HCC) documented in this encounter [facility] History general Narrative - Reported Note Date & Type Note Facility History general Narrative - Reported Type Medical History HTN (hypertension) Hospitalization History kidney stones [facility] Other Summary Purpose Family History No Family History Records FoundNo Family History Records Found Advance Directives No Advanced Directives Records FoundNo Advanced Directives Records Found Additional Source Comments REASON FOR VISIT (unrecogniz ed section and content) Reason Comments Annual Exam welless (unrecognized sect ion and content) No Status Records FoundNo Status Records Found INFORMATION SOURCE (unrecogn ized section and content) DATE CREATED AUTHOR 08/15/2022 [facility] DATE CREATED AUTHOR AUTHOR'S ORGANIZ ATION 09/14/2024 [facility] EPIC Care Teams (unrecognized sec tion and content) Certified Energy Manager Relationship Specialty Start Date End Date Armen Arnold MD [address] [place] [phone] PCP - General Family Medicine 12/07/23 Certified Energy Manager Relationship Specialty Start Date End Date Armen Arnold MD [address] [place] [phone] PCP - General Family Medicine 12/07/23 FOR RECORDS PERTAINING TO PATIENTS WHO ARE OR HAVE BEEN ENROLLED IN A CHEMICAL DEPENDENCY/SUBSTANCEABUSE PROGRAM, SOME INFORMATION MAY BE OMITTED. This clinical summary was aggregated from multiple sources. Caution should be exercised in using it in the provision of clinical care. This summary normalizes information from multiple sources, and as a consequence, information in this document may materially change the coding, format and clinical context of patient data. In addition, data may be omitted in some cases. CLINICAL DECISIONS SHOULD BE BASED ON THE PRIMARY CLINICAL RECORDS. [employer] provides no warranty or guarantee of the accuracy or completeness of information in this document.
[2024-10-16 11:16] LABS: Alanine Aminotransferase 43 U/L (16-63); Albumin Globulin Ratio 0.9; Albumin Level 3.5 g/dL (3.4-5.0); Alkaline Phosphatase 61 U/L (46-116); Anion Gap 9.8; Aspartate Amino Transferase 15 U/L (15-37); BUN Creatinine Ratio 16.7; Bilirubin Direct 0.1 mg/dL (0.0-0.2); Bilirubin Total 0.5 mg/dL (0.2-1.0); Calcium 8.7 mg/dL (8.5-10.1); Carbon Dioxide 32.7 mmol/L (21.0-32.0); Chloride 104 mmol/L (98-107); Chol HDL Ratio 4.4; Cholesterol 177 mg/dL (<=200); Estimated GFR (African America >60 (>=60 mL/min/1.73m^2); Estimated GFR (Non-African Ame >60 (>=60 mL/min/1.73m^2); Globulin 3.9 g/dL; Glucose 106 mg/dL (74-106); HDL Cholesterol 40 mg/dL (40-60); LDL Cholesterol Calculated 117.4 mg/dL; Potassium 3.5 mmol/L (3.5-5.1); Sodium 143 mmol/L (136-145); Thyroid Stimulating Hormone 2.952 uIU/mL (0.358-3.740); Total Protein 7.4 g/dL (6.4-8.2); Triglycerides 98 mg/dL (<=150); VLDL CHOLESTEROL 19.6 mg/dL
[2024-10-16 12:32] LABS: Estimated Average Glucose 111 mg/dL; Glycohemoglobin A1C 5.5 % (4.5-6.2)
== END 2024-10-16 10:24 | disposition home or self-care (01) ==
LOC: LAB 10:23
PROVIDERS: PCP Family Medicine; Visit Provider Family Medicine
DX: Z00.00 Encounter for general adult medical examination without abnormal findings (principal)
CPT/HCPCS: 36415; 80048; 80061; 80076; 83036; 84443; 85025

== ENCOUNTER 2025-08-30 07:54 | Outpatient (OUT) | payer OTHER, SELFPAY ==
--- OUTSIDE RECORDS SUMMARY | 2025-08-30 07:57 | XMS_ITS | Clinical Summary ---
Author Organization [facility] Address [address] [place] [address] Care Team Providers Care Leader Tier Name Role Phone Hugo Montgomery MD Primary Care Provider [phone] Allergies Active AllergyReactionsCriticalityNoted DateComments Sulfamethoxazole-GpayvvteygsoTmqvunj04/21/5769ChufuldhogrCeqyBdm31/21/2024 Able to use amoxicillin Medications MedicationSigDispense QuantityRefillsLast FilledStart DateEnd DateStatus losartan-hydroCHLOROthiazide (Hyzaar) 100-25 MG tablet Indications:Essential hypertension, benignTAKE 1 TABLET BY MOUTH EVERY DAY 90 tablet 5Active Active Problems ProblemNoted DateDiagnosed DateAnnual physical exam02/10/2024 Assessment & Plan (09/12/2024 9:35 AM EST): Due for labs. Discussed proper diet and regular aerobic exercise. Need aerobic exercise 5-6 days a week for 30 minutes at a time. Smaller portions and limit total calories. Colonoscopy after age 45. Tetanus every 10 years. Advised not to smoke. Class 3 severe obesity due to excess calories with serious comorbidity and body mass index (BMI) of45.0 to 49.9 in adult02/10/2024 Assessment & Plan (09/12/2024 9:36 AM EST): Discussed proper diet and regular aerobic exercise. Recommend Weight Watchers and need to limit calories and smaller portions. Need to increase activity and regular aerobic exercise several days a week for 30 minutes at a time. Assessment & Plan (02/10/2024 9:39 AM EDT): Discussed proper diet and regular aerobic exercise. Recommend Weight Watchers and need to limit calories and smaller portions. Need to increase activity and regular aerobic exercise several days a week for 30 minutes at a time. Essential hypertension, wbplwq2712/20/2023 Assessment & Plan (09/12/2024 9:35 AM EST): BP controlled and monitor PRN. Assessment & Plan (02/10/2024 9:38 AM EDT): BP elevated today but typically normal and reports normal at home. Continue to monitor PRN. Chronic pain of left knee12/20/20238325Izqkikbyjyf43/05/2024Vitamin D deficiency 12/20/2023 Resolved Problems ProblemNoted DateDiagnosed DateResolved SdtgPseagxcfr86 Assessment & Plan (02/10/2024 9:38 AM EDT): No bleeding vessels but mucosa irritated. Try vaseline to help with inflammation. Avoid blowing nose. Use humidifier to help with dryness. Refer to ENT for evaluation. Family History Medical HistoryRelationNameCommentsHypertensionFatherPhillip BernardDiabetes Maternal GrandfatherDonald ZuckerDiabetesMotherMelissa BernardRelationNameStatus CommentsFatherPhillip BernardMaternal GrandfatherDonald ZuckerMotherMelissa Ten Social History Tobacco UseTypesPacks/DayYears UsedDateSmoking Tobacco: NeverSmokeless Tobacco: Never Tobacco Cessation:Counseling Given: Not Answered Alcohol UseStandard Drinks/WeekCommentsNever0 (1 standard drink = 0.6 oz pure alcohol)Social Connection and Isolation PanelAnswerDate RecordedIn a typical week, how many times do you talk on the phone with family, friends, or neighbors?Three times a week12/20/2023How often do you get together with friends or relatives?More than three times a week12/20/2023How often do you attend yazidi or yarsanism services?Patient acruskyk46/05/2024o you belong to any clubs or organizations such as yazidi groups, unions, fraternal or athletic miller ups, or school groups?Patient egqxjzno30/05/2024How often do you attend meetings of the clubs or organizations you belong to?Patient hwidkmly28/05/2024re you , , , , never , or living with a partner? Riijlku1212/20/2023UDIT-CAnswerDate RecordedQ1: How often do you have a drink containing alcohol?Never12/20/2023Q2: How many drinks containing alcohol do you have on a typical day when you are drinking?Patient does not drink12/20/2023Q3: How often do you have six or more drinks on one occasion?Never12/20/2023Overall Financial Resource Strain (CARDIA)AnswerDate RecordedHow hard is it for you to pay for the very basics like food, housing, medical care, and heating?Patient erobnehk47/05/2024[facility] [place] [facility] - Occupational Stress QuestionnaireAnswerDate RecordedDo you feel stress - tense, restless, nervous, or anxious, or unable to sleep at night because yourmind is troubled all the time - these days?Not at all12/20/2023Exercise Vital SignAnswerDate RecordedOn average, how many days per week do you engage in moderate to strenuous exercise (like a brisk walk)?5 days12/20/2023On average, how many minutes do you engage in exercise at this level?10 min12/20/2023Hunger Vital SignAnswerDate Recorded Within the past 12 months, you worried that your food would run out before you got the money to buymore.Patient /05/2024Within the past 12 months, the food you bought just didn't last and you didn't have money to get more. Patient mqvnuhuv98/05/2024RAPARE - TransportationAnswerDate RecordedIn the past 12 months, has lack of transportation kept you from medical appointments or from getting medications?No12/20/2023In the past 12 months, has lack of transportation kept you from meetings, work, or from getting things needed for daily living?No12/20/2023Housing Stability Vital SignAnswerDate RecordedIn the last 12 months, was there a time when you were not able to pay the mortgage or rent on time?Patient hxyycnid00/05/2024Number of Places Lived in the Last Year Not on file12/20/2023In the last 12 months, was there a time when you did not have a steady place to sleep or slept in ashelter (including now)?Patient linphueu79/05/2024Sex and Gender InformationValueDate RecordedSex Assigned at BirthNot on fileLegal SfmCpah2912/29/2022 7:05 PM EDTGender IdentityNot on file Sexual OrientationNot on file Last Filed Vital Signs Vital SignReadingTime TakenCommentsBlood Vmmpwwbf039/7409/12/2024 8:55 AM EST Ewpaj584109/12/2024 8:55 AM MUFZbbienqfobq89.2 ??C (97.1 ??F)09/12/2024 8:55 AM ESTRespiratory Pfbj1856 8:55 AM ESTOxygen Czsdvfngni27%09/12/2024 8:55 AM ESTInhaled Oxygen Concentration--Vbfueh792 kg (327 lb)09/12/2024 8:55 AM EST Kzuidc270.3 cm (5' 9 )09/12/2024 8:55 AM ESTBody Mass Index48.29111/12/2023 8:55 AM EST Plan of Treatment Not on file Insurance Care Teams Team MemberRelationshipSpecialtyStart DateEnd Date Hugo Montgomery MD [facility]12/07/23
--- OUTSIDE RECORDS SUMMARY | 2025-08-30 07:57 | XMS_ITS | Clinical Summary ---
Author Organization [employer] [facility] Address [id number] [address] [place] [address] Care Team Providers Care Maintenance Supervisor Name Role Phone Hugo Montgomery MD Primary Care Provider [phone] Allergies Active AllergyReactionsCriticalityNoted DateComments Sulfamethoxazole-JesgvzdrrzciJlrxu40/07/2386EhiaxmlusovPrkal86/02/2017 Medications MedicationSigDispense QuantityRefillsLast FilledStart DateEnd DateStatus hydroCHLOROthiazide (HYDRODIURIL) 25 mg tablet Take 25 mg by mouth daily.Active Active Problems ProblemNoted DateDiagnosed DateScalp cyst06/26/2018PrediabetesChronic pain of left kneeDermoid cyst of scalpDepression screenObesity (BMI 30-39.9)Abdominal wall painSebaceous cyst Family History Medical HistoryRelationNameCommentsHypertensionFatherRelationNameStatusComments Father Social History Tobacco UseTypesPacks/DayYears UsedDateSmoking Tobacco: NeverSmokeless Tobacco: NeverAlcohol UseStandard Drinks/WeekCommentsNo0 (1 standard drink = 0.6 oz pure alcohol)ChildcareAnswerDate KafsaeklApuwsfdwoRnlslrg30/12/2019EmploymentAnswer Date IgpncfymJtixommmfaMvubylf31/12/2019Purpose - LifeAnswerDate RecordedPurpose and direction in ksmjAdxyzny43/11/2021ex and Gender InformationValueDate RecordedSex Assigned at BirthNot on fileLegal VlwTkuf3705/22/2015 11:26 AM EDT Gender IdentityNot on fileSexual OrientationNot on file Last Filed Vital Signs Vital SignReadingTime TakenCommentsBlood Puayznag034/05409 4:04 PM EDT patient takes medication at 2ebArptt5977/02/2017 5:03 AM SHPXwvrpfmffbk83.8 ??C (98.2 ??F)04/17/2017 4:36 AM EDTRespiratory Uhch1950 5:03 AM EDTOxygen Edjgqezfgd452%04/17/2017 6:07 AM EDTInhaled Oxygen Concentration--Muagiy965.3 kg (274 lb)06/26/2018 4:04 PM HXDNczwiv803.3 cm (5' 11 )06/26/2018 4:04 PM EDTBody Mass Index38.22006/26/2018 4:04 PM EDT Plan of Treatment Health MaintenanceDue DateLast DoneCommentsDepression Putkkfrok30/07/1997Tobacco Ftwyqhurk25/07/1997Adult BMI Wmgybkfuz00/07/2003DTaP,Tdap and Td Vaccines (1 - Tdap)2004Influenza Xlqwmpc96 Medical Devices Not on file Insurance Care Teams Team MemberRelationshipSpecialtyStart DateEnd Date Hugo Montgomery MD PCP - [facility]04/17/17
[2025-08-30 08:16] LABS: Hematocrit 40.5 % (42.0-54.0); Hemoglobin 13.9 g/dL (14.0-18.0); Immature Granulocytes Abs Auto 0.04 10^3/uL (0.00-0.03); Immature Granulocytes Pct Auto 0.4 % (0.0-0.5); Lymphocytes Absolute Auto 2.7 10^3/uL (1.2-3.8); Mean Corpuscular HGB Conc 34.3 g/dL (29.9-35.2); Mean Corpuscular Hemoglobin 29.2 pg (25.9-34.0); Mean Corpuscular Volume 85.1 fL (80.0-94.0); Platelet Count 280 10^3/uL (150-450); Red Blood Count 4.76 10^6/uL (4.70-6.10); White Blood Count 10.4 10^3/uL (4.0-11.0)
[2025-08-30 08:56] LABS: Potassium 3.8 mmol/L (3.5-5.1); Sodium 144 mmol/L (136-145)
[2025-08-30 08:57] LABS: Alanine Aminotransferase 41 U/L (16-63); Anion Gap 11.1; Aspartate Amino Transferase 19 U/L (15-37); Blood Urea Nitrogen 17.0 mg/dL (7.0-18.0); Calcium 9.0 mg/dL (8.5-10.1); Carbon Dioxide 32.7 mmol/L (21.0-32.0); Chloride 104 mmol/L (98-107); Estimated GFR (African America >60 (>=60 mL/min/1.73m^2); Estimated GFR (Non-African Ame >60 (>=60 mL/min/1.73m^2); Glucose 89 mg/dL (74-106)
[2025-08-30 08:58] LABS: Albumin Globulin Ratio 1.1; Albumin Level 4.0 g/dL (3.4-5.0); Alkaline Phosphatase 61 U/L (46-116); Cholesterol 165 mg/dL (<=200); Globulin 3.8 g/dL; HDL Cholesterol 39 mg/dL (40-60); Thyroid Stimulating Hormone 2.487 uIU/mL (0.358-3.740); Total Protein 7.8 g/dL (6.4-8.2); Triglycerides 34 mg/dL (<=150); VLDL CHOLESTEROL 6.8 mg/dL
== END 2025-08-30 07:55 | disposition home or self-care (01) ==
LOC: LAB 07:55
PROVIDERS: PCP Family Medicine; Visit Provider Family Medicine
DX: Z00.00 Encounter for general adult medical examination without abnormal findings (principal); Z12.5 Encounter for screening for malignant neoplasm of prostate
CPT/HCPCS: 36415; 80053; 80061; 83036; 84443; 85025; G0103